=== PATIENT | male | born 1975 | race Caucasian/White ===

== ENCOUNTER 2016-05-30 07:21 | Emergency (ER) | payer OTHER ==
[2016-05-30 07:36] VITALS: TEMP 98.1; BMI 27.0
--- NOTE | 2016-05-30 08:09 | PDOC ---
Post Exposure HPI - General History Source: Patient - History of Present Illness Timing: this morning (within the hr) Exposed Location: Left: Other exposed area(s) (knee) Assessing Significant Risk PEP: Yes Percutaneous <Sheyla Lainez - Last Filed: 05/30/16 09:09> <Kim Stevens - Last Filed: 05/30/16 10:29> - General Chief Complaint: Non EmpBld/Body Flud Exposure Stated Complaint: FOREIGN INSULIN NEEDLE STICK TO LT KNEE Time Seen by Provider: 05/30/16 07:51 Past History - Immunization History Immunizations Up to Date: Yes - Social History Smoking History: No Smoking Status: Current every day smoker Number of Ciarettes Per Day: 20 Alcohol Use: none Drug Use: none <Sheyla Lainez - Last Filed: 05/30/16 09:09> <Kim Stevens - Last Filed: 05/30/16 10:29> - Past Medical History Allergies/Adverse Reactions: Allergies No Known Allergies Allergy (Verified 05/30/16 07:26) Home Medications: Ambulatory Orders Oxycodone HCl/Acetaminophen [Percocet 10-325 mg Tablet] 1 - 2 tab PO PRN PRN 10/10 Emtricitabine/Tenofovir (Tdf) [Truvada 200 mg-300 mg Tablet] 1 each PO DAILY # 30 tablet 05/30/16 Ibuprofen 600 mg PO DAILY 05/30/16 Raltegravir [Isentress] 400 mg PO BID #60 tab 05/30/16 Tamsulosin HCl [Flomax] 0.4 mg PO DAILY 05/30/16 Review of Systems - Review of Systems Constitutional: No: Chills, Fever Musculoskeletal: Yes: Joint Pain. No: Joint Swelling <Sheyla Lainez - Last Filed: 05/30/16 09:09> *Physical Exam - Vital Signs Last Vital Signs Temp Pulse Resp BP Pulse Ox 98.1 F 68 19 127/61 96 05/30/16 07:26 05/30/16 07:26 05/30/16 07:26 05/30/16 07:26 05/30/16 07:26 - Physical Exam General Appearance: Yes: Appropriately Dressed. No: Apparent Distress HEENT: positive: Normal Voice Neck: positive: Supple Respiratory/Chest: negative: Respiratory Distress Extremity: positive: Other (puncture wound w/ dried blood to medial L knee, minimally ttp, no joint swelling or erythema, FROMI) Integumentary: positive: Dry, Warm <Sheyla Lainez - Last Filed: 05/30/16 09:09> - Vital Signs Last Vital Signs Temp Pulse Resp BP Pulse Ox 98.1 F 75 18 130/65 99 05/30/16 07:26 05/30/16 09:09 05/30/16 09:09 05/30/16 09:09 05/30/16 09:09 <Kim Stevens - Last Filed: 05/30/16 10:29> Medical Decision Making - Medical Decision Making 05/30/16 08:22 40 yo M, no sig hx, presents w/ needle stick injury this am. 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 States site bled spontaneously and has not clean site as of yet. Complaining of some soreness to left knee. Patient states his tetanus is up-to-date, and believes that he's been vaccinated against Hep B while incarcerated about 5 years ago. Patient well- appearing and stable with puncture wound to medial aspect of left knee, no signs of infection at this time. Explained to patient low risk of exposure for HIV and hepatitis, but that PEP is recommended as no source available for testing. Patient accepts and given first dose of Isentress and truvada in ED and will give prescription for a month's supply on discharge. Labs pending. Local wound care in ED 05/30/16 08:44 05/30/16 08:45 Pt requesting to be discharged to go to his second job. Is willing to wait for labs to be drawn and initial PEP doses and states I can call him with any remarkable labs. Aware that he needs to f/u with his PMD for future testing for HIV and hepatitis 05/30/16 09:09 <Sheyla Lainez - Last Filed: 05/30/16 09:09> *DC/Admit/Observation/Transfer <Sheyla Lainez Last Filed: 05/30/16 09:09> - Attestations Physician Attestion: I reviewed the case with the mid-level practitioner and agree with the mid- level practitioner's assessment, diagnosis and disposition. <Kim Stevens - Last Filed: 05/30/16 10:29> Diagnosis at time of Disposition: Needlestick injury accident Qualifiers: Encounter type: initial encounter Qualified Code(s): W27.3XXA - Contact with needle (sewing), initial encounter - Discharge Dispostion Disposition: HOME Condition at time of disposition: Good - Prescriptions Prescriptions: Raltegravir [Isentress] 400 mg PO BID #60 tab Emtricitabine/Tenofovir (Tdf) [Truvada 200 mg-300 mg Tablet] 1 each PO DAILY # 30 tablet - Referrals Referrals: Bria Gayle MD [Primary Care Provider] - - Patient Instructions Printed Discharge Instructions: How to Handle Body Fluid Exposure -- Non- Healthcare Worker (At Home, Caregi Additional Instructions: Please take medications as directed and follow up with your PMD in 1 and 6 months for HIV and hepatitis testing Please return to ED for worsening pain or redness to left knee, or fever or chills - Post Discharge Activity Work/School Note: Back to Work
[2016-05-30] MEDS ORDERED: EMTRICITABINE 200MG/TENOFOVIR 300MG PO ONE (08:15)
[2016-05-30] MEDS ORDERED: RALTEGRAVIR POTASSIUM 400 MG TAB PO ONE (08:15)
[2016-05-30] MEDS ORDERED: HIV POST EXPOSURE PROPHYLAXIS KIT PO ONE (09:06)
[2016-05-30 09:10] VITALS: BP 130/65; PULSE 75
[2016-05-30 09:20] LABS: BASOPHIL 0.5 % (0-2.0); EOSINOPHIL 3.8 % (0-4.5); MCHC 33.3 g/dl (32.0-35.9); MEAN PLT VOLUME 8.3 fl (7.5-11.1); NEUTROPHILS 68.7 % (42.8-82.8); PLATELET COUNT 246 K/MM3 (134-434); RDW 12.8 % (11.9-15.9); WHITE BLOOD COUNT 10.1 K/mm3 (4.0-10.0)
[2016-05-30 09:41] LABS: ALBUMIN 4.1 g/dl (3.4-5.0); ANION GAP 10 (8-16); CALCIUM 9.4 mg/dL (8.5-10.1); CHOLESTEROL 230 mg/dL (50-200); CO2 26 mmol/L (21-32); CREATININE 0.8 mg/dL (0.7-1.3); GLUCOSE,RANDOM 93 mg/dL (74-106); LDH 191 U/L (87-241); PHOSPHOROUS 3.4 mg/dL (2.5-4.9); SGOT/AST 25 U/L (15-37); SGPT/ALT 28 U/L (12-78); TOT PROT 7.5 g/dl (6.4-8.2); URIC ACID 4.7 mg/dL (2.6-7.2)
[2016-05-30 09:42] LABS: ALK PHOS 93 U/L (45-117); BILIRUBIN,TOTAL 0.4 mg/dL (0.2-1.0)
[2016-05-30 10:39] LABS: HIV 1 & 2 AB NEGATIVE; HIV 1 AGp24 NEGATIVE
[2016-05-31 06:06] LABS: HEP B SURFACE AB Non Reactive (.)
== END 2016-05-30 09:17 | disposition home or self-care (01) ==
LOC: JER 07:21
DX: S81.032A Puncture wound without foreign body, left knee, initial encounter (principal); W46.0XXA Contact with hypodermic needle, initial encounter; Y93.89 Activity, other specified; Y92.410 Unspecified street and highway as the place of occurrence of the external cause; Y99.0 Civilian activity done for income or pay; F17.210 Nicotine dependence, cigarettes, uncomplicated
CPT/HCPCS: 36415; 80053; 82465; 82977; 83615; 84100; 84478; 84550; 85025; 86704; 86706; 87340; 87389; 99282-25

== ENCOUNTER 2018-11-11 16:36 | Emergency (ER) | payer BC ==
[2018-11-11 17:06] VITALS: BP 120/82; PULSE 59; TEMP 98.4; BMI 27.1
[2018-11-11] MEDS ORDERED: SODIUM CHLORIDE 2,000 ML IV STA (17:08)
[2018-11-11] MEDS ORDERED: ONDANSETRON 4 MG/2 ML VIAL IVPB ONE (17:14)
[2018-11-11] MEDS ORDERED: MAG HYDROX/AL HYDROX/SIMETH 30 ML UNIT-DOSE CUP PO ONE (17:14)
[2018-11-11] MEDS ORDERED: FAMOTIDINE 20 MG/50 ML IVPB 20 MG/50 ML MG IVPB ONE ×2 (17:14→17:25)
--- NOTE | 2018-11-11 17:24 | PDOC ---
History of Present Illness - General Chief Complaint: Cold Symptoms Stated Complaint: fever,diarrhea,nausea,sinus infection Time Seen by Provider: 11/11/18 16:37 History Source: Patient Exam Limitations: No Limitations - History of Present Illness Initial Comments: 11/11/18 17:18 43 year old male with history of chronic back pain on daily percocet, hx of sinustis p/w fever and diarrhea. The patient works in the bar industry as well as sanitation. 4 days ago, started to notice tactile fevers and chills. Pt initially thought it may have been his sinus, as he has had prior sinus infections. The following day, went to [facility] , where they reported that he had sinusitis and prescribed a 10 day course of amoxicillin. The patient reportedly had taken 2 doses, but that night, pt continued to complain of fevers and chills. Noted that night that he was having numerous loose nonbloody stools. Had associated nausea but no vomiting. Never endorsed any abdominal pain. The patient stated that anytime he ate or drink, he would continued to have diarrhea. Yesterday, noted a temperature of 102 degrees. He has not been recently travelling nor does he think he had exposures. He does work in the food industry, so he does not know if he has sick contacts. Denies dysuria. Pt feels generally chills. Past History - Past Medical History Allergies/Adverse Reactions: Allergies Allergy/AdvReac Type Severity Reaction Status Date / Time No Known Allergies Allergy Verified 11/11/18 16:39 Home Medications: Ambulatory Orders Oxycodone HCl/Acetaminophen [Percocet 10-325 mg Tablet] 1 - 2 tab PO PRN PRN 10/10 Ibuprofen 600 mg PO DAILY 05/30/16 Famotidine [Pepcid] 20 mg PO BID PRN #20 tablet 11/11/18 Ibuprofen 600 mg PO Q6H PRN #20 tablet 11/11/18 Mag Hydrox/Aluminum Hyd/Simeth [Maalox Advanced Suspension] 30 ml PO Q6H PRN #1 oral.susp 11/11/18 Ondansetron HCl [Zofran] 4 mg PO Q8H PRN #15 tablet 11/11/18 Anemia: No Asthma: No Cancer: No Cardiac Disorders: No CVA: No COPD: No CHF: No Dementia: No Diabetes: No GI Disorders: No Disorders: No HTN: No Hypercholesterolemia: No Liver Disease: No Seizures: No Thyroid Disease: No - Surgical History Abdominal Surgery: No Appendectomy: No Cardiac Surgery: No Cholecystectomy: No Lung Surgery: No Neurologic Surgery: No Orthopedic Surgery: Yes (Left Meniscus Repair) - Immunization History Td Vaccination: No TDAP Vaccination: No Immunization Up to Date: Yes - Suicide/Smoking/Psychosocial Hx Smoking Status: No Smoking History: Current every day smoker Have you smoked in the past 12 months: Yes Number of Cigarettes Smoked Daily: 20 Information on smoking cessation initiated: Yes 'Breaking Loose' booklet given: 10/24/17 Hx Alcohol Use: No Drug/Substance Use Hx: No Substance Use Type: Cocaine Hx Substance Use Treatment: Yes Review of Systems - Review of Systems Able to Perform ROS?: Yes Comments:: 11/11/18 17:24 GENERAL/CONSTITUTIONAL: + fever or chills.No weight change.] HEAD, EYES, EARS, NOSE AND THROAT: [No change in vision. No ear pain or discharge. No sore throat.] CARDIOVASCULAR: [No chest pain or shortness of breath.] RESPIRATORY: [No cough, wheezing, or hemoptysis.] GASTROINTESTINAL: [No vomiting or constipation. No rectal bleeding.] +diarrhea, nausea. GENITOURINARY: [No dysuria, frequency, or change in urination.] MUSCULOSKELETAL: [No joint or muscle swelling or pain. No neck or back pain.] SKIN AND BREASTS: [No rash or easy bruising.] NEUROLOGIC: [No headache, vertigo, loss of consciousness, or loss of sensation.] PSYCHIATRIC: [No depression or anxiety.] ENDOCRINE: [No increased thirst. No abnormal weight change.] HEMATOLOGIC/LYMPHATIC: [No anemia, easy bleeding, or history of blood clots.] ALLERGIC/IMMUNOLOGIC: [No hives or skin allergy. No latex allergy.] *Physical Exam - Vital Signs Last Vital Signs Temp Pulse Resp BP Pulse Ox 98.4 F 59 L 18 120/82 100 11/11/18 16:37 11/11/18 16:37 11/11/18 16:37 11/11/18 16:37 11/11/18 16:37 - Physical Exam Comments: 11/11/18 17:25 GENERAL: Awake, alert, and fully oriented, in no acute distress HEAD: No signs of trauma EYES: EOMI, sclera anicteric, conjunctiva clear ENT: Auricles normal inspection, hearing grossly normal, nares patent, Dry mucous membranes. No sinus tenderness NECK: Normal ROM, supple, LUNGS: Breath sounds equal, clear to auscultation bilaterally. No wheezes, and no crackles HEART: Regular rate and rhythm, normal S1 and S2, no murmurs, rubs or gallops ABDOMEN: Soft, nontender, No guarding, no rebound. No masses EXTREMITIES: Normal range of motion, no edema. No clubbing or cyanosis. No cords, erythema, or tenderness NEUROLOGICAL: Cranial nerves II through XII grossly intact. Normal speech, normal gait SKIN: Warm, Dry, normal turgor, no rashes or lesions noted. ED Treatment Course - LABORATORY CBC & Chemistry Diagram: 11/11/18 17:15 11/11/18 17:15 Medical Decision Making - Medical Decision Making 11/11/18 17:25 Vital Signs Temp Pulse Resp BP Pulse Ox 98.4 F 59 L 18 120/82 100 11/11/18 16:37 11/11/18 16:37 11/11/18 16:37 11/11/18 16:37 11/11/18 16:37 I suspect patient likely has viral gastroenteritis. However, the patient has persistence of stooling, we'll obtain blood work, give IV hydration, stool cultures. Other than the amoxicillin, the patient has no other antibiotic exposure or hospitalization. Less likely to be Clostridium difficile. Reassess. Given no sinus tenderness and no facial symptoms, I feel less likely that this is sinusitis and more likely to be secondary to gastroenterology in etiology. 11/11/18 18:22 CBC, BMP 11/11/18 17:15 11/11/18 17:15 CMP Sodium 138 mmol/L (136-145) 11/11/18 17:15 Potassium 3.9 mmol/L (3.5-5.1) 11/11/18 17:15 Chloride 101 mmol/L (98-107) 11/11/18 17:15 Carbon Dioxide 26 mmol/L (21-32) 11/11/18 17:15 Anion Gap 11 MMOL/L (8-16) 11/11/18 17:15 BUN 18.0 mg/dl (7-18) 11/11/18 17:15 Creatinine 0.8 mg/dl (0.55-1.3) 11/11/18 17:15 Est GFR (CKD-EPI)AfAm 125.04 11/11/18 17:15 Est GFR (CKD-EPI)NonAf 107.88 11/11/18 17:15 Random Glucose 91 mg/dl (74-106) 11/11/18 17:15 Calcium 9.2 mg/dl (8.5-10) 11/11/18 17:15 Magnesium 2.0 mg/dL (1.8-2.4) 11/11/18 17:15 Total Bilirubin 0.9 mg/dl (0.2-1) 11/11/18 17:15 AST 24 U/L (15-37) 11/11/18 17:15 ALT 27 U/L (13-61) 11/11/18 17:15 Alkaline Phosphatase 66 U/L (45-117) 11/11/18 17:15 Total Protein 7.4 g/dl (6.4-8.2) 11/11/18 17:15 Albumin 4.2 g/dl (3.4-5.0) 11/11/18 17:15 Pt has not had any bowel movements, but feels better with IV hydration and medications. At this time, I will treat as viral gastroenteritis. I will treat supportively with oral fluids at home. The patient overall is nontoxic appearing and ambulatory. I did advise the patient however to watch himself in the next 72 hours. If he notices no improvement or worsening, then he should return to the ER. The patient verbalizes understanding and agrees with plan. He will follow up with Dr. Gayle. I discussed the physical exam findings, ancillary test results and final diagnoses with the patient. I answered all of the patient's questions. The patient was satisfied with the care received and felt comfortable with the discharge plan and treatment plan. The patient will call their primary care physician within 24 hours to arrange follow-up and will return to the Emergency Department with any new, persistant or worsening symptoms. *DC/Admit/Observation/Transfer Diagnosis at time of Disposition: Gastroenteritis - Discharge Dispostion Disposition: HOME Condition at time of disposition: Improved Decision to Admit order: No - Prescriptions Prescriptions: Famotidine [Pepcid] 20 mg PO BID PRN #20 tablet PRN Reason: Acid Reflux Ibuprofen 600 mg PO Q6H PRN #20 tablet PRN Reason: Pain/Fever Mag Hydrox/Aluminum Hyd/Simeth [Maalox Advanced Suspension] 30 ml PO Q6H PRN #1 oral.susp PRN Reason: Abdominal Upset Ondansetron HCl [Zofran] 4 mg PO Q8H PRN #15 tablet PRN Reason: Nausea - Referrals Referrals: Bria Gayle MD [Primary Care Provider] - - Patient Instructions Printed Discharge Instructions: DI for Viral Gastroenteritis -- Adult Additional Instructions: At this time, I suspect your illness is due to viral gastroenteritis. You do not appear to be having symptoms of a sinus infection at this time. So instead, we will treat this as a stomach bug. Drink plenty of fluids and rest. It may take several days before your symptoms resolve. You may take 600 mg ibuprofen every 6 hours as needed for pain. Take 30 mL of maalox every 6 hours as needed for stomach upset. Take 4 mg zofran every 8 hours as needed for nausea. Take 20 mg pepcid every 12 hours as needed for acid reflux. If you do not notice improvement in the next 72 hours or your symptoms worsen, please call your doctor or return to the ER. - Post Discharge Activity Forms/Work/School Notes: Back to Work
[2018-11-11] MEDS ORDERED: ONDANSETRON 4 MG/2 ML VIAL ONE (17:25)
[2018-11-11] MEDS ORDERED: MAG HYDROX/AL HYDROX/SIMETH 30 ML UNIT-DOSE CUP ONE (17:25)
[2018-11-11 17:32] LABS: BASO % 0.3 % (0-2.0); EOS % 1.7 % (0-4.5); HEMOGLOBIN 15.5 GM/dl (11.7-16.9); LYMPH % 18.1 % (8-40); MCH 29.6 pg (25.7-33.7); MCHC 33.6 g/dl (32.0-35.9); MEAN CELL VOLUME 88.2 fl (80-96); MONO % 16.1 % (3.8-10.2); NEUT % 63.8 % (42.8-82.8); PLATELET COUNT 239 K/MM3 (134-434); RBC 5.22 M/mm3 (4.00-5.60); RDW 11.8 % (11.9-15.9); WHITE BLOOD COUNT 5.9 K/mm3 (4.0-10.8)
[2018-11-11 17:43] LABS: ALBUMIN 4.2 g/dl (3.4-5.0); BILIRUBIN,TOTAL 0.9 mg/dl (0.2-1); CALCIUM 9.2 mg/dl (8.5-10); CREATININE 0.8 mg/dl (0.55-1.3); POTASSIUM 3.9 mmol/L (3.5-5.1); TOT PROT 7.4 g/dl (6.4-8.2)
== END 2018-11-11 18:41 | disposition home or self-care (01) ==
LOC: FER 16:36
PROC: 3E033GC Introduction of Other Therapeutic Substance into Peripheral Vein, Percutaneous Approach (ICD-10-PCS; principal; 2018-11-11)
PROC: 3E0337Z Introduction of Electrolytic and Water Balance Substance into Peripheral Vein, Percutaneous Approach (ICD-10-PCS; 2018-11-11)
DX: K52.9 Noninfective gastroenteritis and colitis, unspecified (principal); F17.210 Nicotine dependence, cigarettes, uncomplicated; Z79.891 Long term (current) use of opiate analgesic; M54.9 Dorsalgia, unspecified; G89.29 Other chronic pain
CPT/HCPCS: 36415; 80053; 83735; 85025; 99282-25; J7030

== ENCOUNTER 2019-04-27 18:45 | Emergency (ER) | payer OTHER, BC ==
[2019-04-27 19:27] VITALS: BP 129/84; PULSE 63; TEMP 98.4; BMI 27.1
[2019-04-27] MEDS ORDERED: KETOROLAC TROMETHAMINE 60 MG/2 ML VIAL IM ONE (19:56)
[2019-04-27] MEDS ORDERED: KETOROLAC TROMETHAMINE 60 MG/2 ML VIAL ONE (20:08)
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
== END 2019-04-27 20:13 | disposition home or self-care (01) ==
LOC: FER 18:45
PROC: 3E0233Z Introduction of Anti-inflammatory into Muscle, Percutaneous Approach (ICD-10-PCS; principal; 2019-04-27)
DX: S43.401A Unspecified sprain of right shoulder joint, initial encounter (principal); S40.012A Contusion of left shoulder, initial encounter; S70.02XA Contusion of left hip, initial encounter; V89.2XXA Person injured in unspecified motor-vehicle accident, traffic, initial encounter; Y93.89 Activity, other specified; Y92.410 Unspecified street and highway as the place of occurrence of the external cause; Y99.0 Civilian activity done for income or pay; F17.210 Nicotine dependence, cigarettes, uncomplicated; M51.9 Unspecified thoracic, thoracolumbar and lumbosacral intervertebral disc disorder
CPT/HCPCS: 73030-TC-LT-FY; 73030-TC-RT-FY; 73523-TC-FY; 99281-25

== ENCOUNTER 2021-04-17 17:39 | Emergency (ER) | payer BC ==
[2021-04-17] MEDS ORDERED: LACTATED RINGERS SOLUTION 1,000 ML IV STA ×2 (18:00→18:48)
[2021-04-17 18:09] VITALS: BP 118/89; PULSE 89; TEMP 99.6; BMI 27.3
[2021-04-17] MEDS ORDERED: KETOROLAC TROMETHAMINE 15 MG/ML VIAL IVPUSH ONE (18:34)
[2021-04-17] MEDS ORDERED: METOCLOPRAMIDE HCL INJECTION 10 MG/2 ML VIAL IVPUSH ONE (18:34)
[2021-04-17] MEDS ORDERED: METOCLOPRAMIDE HCL INJECTION 10 MG/2 ML VIAL ONE (18:47)
[2021-04-17] MEDS ORDERED: KETOROLAC TROMETHAMINE 30 MG/1 ML VIAL ONE (18:47)
[2021-04-17] MEDS ORDERED: morphine CARPU-JECT 4 MG/1 ML DISP.SYRIN IVPUSH ONE (19:11)
[2021-04-17] MEDS ORDERED: morphine SULFATE 4 MG/ML VIAL ONE (19:17)
[2021-04-17 19:32] LABS: ACTIVATED PTT 31.4 SECONDS (25.2-36.5)
[2021-04-17 19:34] LABS: ALBUMIN 4.2 g/dl (3.4-5.0); BILIRUBIN,TOTAL 0.4 mg/dl (0.2-1); CREATININE 0.7 mg/dl (0.55-1.3); TOT PROT 7.1 g/dl (6.4-8.2)
[2021-04-17 19:36] LABS: INR 1.12 (0.83-1.09); PROTHROMBIN TIME (PATIENT) 12.4 SEC (9.7-13.0)
[2021-04-17 20:13] LABS: HEMATOCRIT 43.2 % (35.4-49); HEMOGLOBIN 14.6 GM/dL (11.7-16.9); MCH 29.5 pg (25.7-33.7); MCHC 33.8 g/dl (32.0-35.9); MEAN CELL VOLUME 87.2 fl (80-96); MEAN PLT VOLUME 8.7 fl (7.5-11.1); PLATELET COUNT 205 10^3/uL (134-434); RBC 4.96 M/mm3 (4.00-5.60); RDW 13.5 % (11.9-15.9); WHITE BLOOD COUNT 3.8 K/mm3 (4.0-10.0)
[2021-04-17 21:57] LABS: ANISOCYTOSIS 0; HELMET CELLS 0; HOWELL-JOLLY BODIES 0; MACROCYTOSIS 0; OVALOCYTE 0; PLATELET ESTIMATE NORMAL; ROULEAU 0; SICKELED CELLS 0; TARGET CELLS 0; TEAR DROP CELLS 0; TOXIC GRANULATION 0
== END 2021-04-17 20:42 | disposition home or self-care (01) ==
LOC: FER 17:39
PROC: 3E0333Z Introduction of Anti-inflammatory into Peripheral Vein, Percutaneous Approach (ICD-10-PCS; principal; 2021-04-17)
PROC: 3E033NZ Introduction of Analgesics, Hypnotics, Sedatives into Peripheral Vein, Percutaneous Approach (ICD-10-PCS; 2021-04-17)
PROC: 3E0337Z Introduction of Electrolytic and Water Balance Substance into Peripheral Vein, Percutaneous Approach (ICD-10-PCS; 2021-04-17)
PROC: 3E033GC Introduction of Other Therapeutic Substance into Peripheral Vein, Percutaneous Approach (ICD-10-PCS; 2021-04-17)
DX: J06.9 Acute upper respiratory infection, unspecified (principal)
CPT/HCPCS: 36415; 71045-TC-FY; 80053; 85025; 85610; 85730; 87804; 87807; 99285-25; C9803; U0003; U0005

== ENCOUNTER 2021-09-01 05:25 | Emergency (ER) | payer BC ==
[2021-09-01 05:46] VITALS: TEMP 98.8; BMI 26.6
[2021-09-01] MEDS ORDERED: SODIUM CHLORIDE FOR INHALATION 3 ML VIAL.NEB IH ONE (05:49)
[2021-09-01] MEDS ORDERED: LIDOCAINE 5% TOPICAL PATCH TP ONE (05:50)
[2021-09-01] MEDS ORDERED: ACETAMINOPHEN 325 MG TABLET (FP) PO ONE (05:50)
[2021-09-01] MEDS ORDERED: ACETAMINOPHEN 325 MG TABLET (FP) ONE (05:52)
[2021-09-01] MEDS ORDERED: LIDOCAINE 5% TOPICAL PATCH ONE (05:53)
[2021-09-01] MEDS ORDERED: KETOROLAC TROMETHAMINE 30 MG/1 ML VIAL IM ONE (06:05)
[2021-09-01] MEDS ORDERED: KETOROLAC TROMETHAMINE 30 MG/1 ML VIAL ONE (06:16)
[2021-09-01 06:34] LABS: BASO % 0.5 % (0-2.0); EOS % 1.3 % (0-4.5); HEMATOCRIT 43.5 % (35.4-49); HEMOGLOBIN 14.9 GM/dL (11.7-16.9); LYMPH % 12.4 % (8-40); MCH 29.5 pg (25.7-33.7); MCHC 34.4 g/dl (32.0-35.9); MEAN CELL VOLUME 85.9 fl (80-96); MEAN PLT VOLUME 8.1 fl (7.5-11.1); MONO % 8.5 % (3.8-10.2); NEUT % 77.3 % (42.8-82.8); PLATELET COUNT 288 10^3/uL (134-434); RBC 5.06 M/mm3 (4.00-5.60); RDW 13.3 % (11.9-15.9); WHITE BLOOD COUNT 10.5 K/mm3 (4.0-10.0)
[2021-09-01 06:56] LABS: ALBUMIN 4.2 g/dl (3.4-5.0); CALCIUM 9.5 mg/dL (8.5-10.1)
[2021-09-01 06:57] LABS: BLOOD UREA NITROGEN 15.5 mg/dL (7-18)
[2021-09-01 06:59] LABS: CREATININE 0.9 mg/dL (0.55-1.3)
[2021-09-01 07:01] LABS: BILIRUBIN,TOTAL 0.4 mg/dL (0.2-1); TOT PROT 7.6 g/dl (6.4-8.2)
[2021-09-01 07:26] VITALS: BP 132/104; PULSE 89
[2021-09-01] MEDS ORDERED: LIDOCAINE PATCH REMOVAL MC SCH (22:00)
== END 2021-09-01 08:16 | disposition left against medical advice (07) ==
LOC: JER 05:25
PROC: 3E023GC Introduction of Other Therapeutic Substance into Muscle, Percutaneous Approach (ICD-10-PCS; principal; 2021-09-01)
DX: R06.02 Shortness of breath (principal); M54.2 Cervicalgia; M79.10 Myalgia, unspecified site; T50.905A Adverse effect of unspecified drugs, medicaments and biological substances, initial encounter
CPT/HCPCS: 36415; 80053; 84484; 85025; 93005; 93010; 99284-25